=== PATIENT | female | born 1975 | race African-American/Black ===

== ENCOUNTER 2022-04-07 08:54 | Emergency (ER) | payer OTHER ==
[2022-04-07 09:13] VITALS: BP 132/82; PULSE 71; RESP 18; TEMP 97.8; BMI 29.9
[2022-04-07] MEDS ORDERED: ACETAMINOPHEN 325 MG TABLET (FP) PO ONE (09:32)
[2022-04-07] MEDS ORDERED: DIPHTH,PERTUSS(ACELL),TET 0.5 ML DISP.SYRIN IM ONE ×2 (09:33→09:35)
[2022-04-07] MEDS ORDERED: ACETAMINOPHEN 325 MG TABLET (FP) ONE (09:35)
== END 2022-04-07 10:45 | disposition home or self-care (01) ==
LOC: JER 08:54
PROC: 3E0234Z Introduction of Serum, Toxoid and Vaccine into Muscle, Percutaneous Approach (ICD-10-PCS; principal; 2022-04-07)
DX: S93.491A Sprain of other ligament of right ankle, initial encounter (principal)
CPT/HCPCS: 73610-TC-RT-FY; 73630-TC-RT-FY; 90715; 99284-25

== ENCOUNTER 2023-02-13 13:41 | Emergency (ER) | payer OTHER ==
[2023-02-13 13:54] VITALS: BP 134/83; PULSE 71; RESP 16; TEMP 97.6; BMI 33.6
== END 2023-02-13 15:52 | disposition home or self-care (01) ==
LOC: JERFT 13:41
DX: S69.91XA Unspecified injury of right wrist, hand and finger(s), initial encounter (principal); R22.31 Localized swelling, mass and lump, right upper limb; X50.0XXA Overexertion from strenuous movement or load, initial encounter
CPT/HCPCS: 73130-TC-RT-FY; 99283-25